=== PATIENT | male | born 1960 | race Two or more races ===

== ENCOUNTER 2017-03-16 16:28 | Inpatient (IN) ==
[2017-03-16 17:15] LABS: Basophils # 0.1 10*3/uL (0.0-0.2); Basophils % 0.5 % (0.0-0.8); Eosinophils # 0.1 10*3/uL (0.0-0.87); Eosinophils % 1.3 % (0.00-10.9); Hematocrit 48.3 VOL% (42.0-52.0); Hemoglobin 16.6 GM/DL (14.0-18.0); Immature Granulocytes % 0.5 %; Immature Granulocytes Absolute 0.05 #; Lymphocytes % 10.5 % (21.2-54.2); Mean Corpuscular HGB Conc 34.4 GM/DL (32-36); Mean Corpuscular Hemoglobin 28 PG (27-34); Mean Corpuscular Volume 82.4 FL (87-102); Mean Platelet Volume 11.5 FL (9.6-12.0); Monocytes # 0.5 10*3/uL (0.11-0.8); Monocytes % 4.9 % (1.7-12.7); Neutrophils # 7.7 10*3/uL (1.4-7.4); Neutrophils % 82.3 % (38.7-73.9); Platelet Count 210 T/CUMM (130-400); Red Blood Count 5.86 MC/CUMM (3.8-5.5); Red Cell Distribution Width 13.4 % (9.3-17.3); White Blood Count 9.3 T/CUMM (4-12)
[2017-03-16 17:28] LABS: PT Patient Result 10.8 SECS; Partial Thromboplastin Time 31.2 SECS (0-40)
[2017-03-16 17:29] LABS: Alanine Aminotransferase 46 U/L (16-61); Albumin 3.2 G/DL (3.4-5.0); Alkaline Phosphatase 70 U/L (45-117); Aspartate Amino Transferase 33 U/L (0-37); Blood Urea Nitrogen 18 MG/DL (7-18); Glucose 170 MG/DL (74-106); Osmolality,Calculated 275.1 MOS/KG (273-304); Potassium 4.1 MMOL/L (3.5-5.1); Sodium 135 MMOL/L (136-145); Total Protein 7.1 G/DL (6.4-8.3)
[2017-03-16] MEDS ORDERED: DIAZEPAM 10 MG/2 ML SYRINGE ONE (17:35)
[2017-03-16] MEDS ORDERED: DIAZEPAM 10 MG/2 ML SYRINGE IV STA (17:40)
[2017-03-16] MEDS ORDERED: CARVEDILOL 3.125 MG TABLET PO STA (17:40)
[2017-03-16] MEDS ORDERED: MAGNESIUM SULF RIDER 2 GM in PREMIX 1 EACH IV STA (17:40)
[2017-03-16] MEDS ORDERED: MAGNESIUM SULF RIDER 50 ML IV ONE (17:45)
[2017-03-16] MEDS ORDERED: ONDANSETRON 4 MG/2 ML VIAL IV PRN (17:57)
[2017-03-16] MEDS ORDERED: MAGNESIUM SULF RIDER 4 GM in PREMIX 1 EACH IV PRN (17:57)
[2017-03-16] MEDS ORDERED: MAGNESIUM SULF RIDER 2 GM in PREMIX 1 EACH IV PRN (17:57)
[2017-03-16] MEDS ORDERED: ZALEPLON 5 MG CAPSULE PO PRN (17:57)
[2017-03-16] MEDS: CARVEDILOL 12.5 MG TABLET PO SCH (20:21)
[2017-03-16 21:23] LABS: CKMB % 4.6 %
[2017-03-16 21:27] LABS: Troponin I Only 3.34 NG/ML (0.00-0.045)
[2017-03-17 00:50] LABS: CKMB % 2.8 %
[2017-03-17 01:14] LABS: Troponin I Only 5.2 NG/ML (0.00-0.045)
[2017-03-17] MEDS ORDERED: AMIODARONE INJ 450 MG in DEXTROSE 5% 241 ML IV SCH (09:30)
[2017-03-17] MEDS: ASPIRIN EC 81 MG TABLET PO SCH (10:11)
[2017-03-17] MEDS: PANTOPRAZOLE 40 MG TABLET PO SCH (10:11)
[2017-03-17] MEDS: CARVEDILOL 12.5 MG TABLET PO SCH ×2 (10:11→20:38)
[2017-03-17] MEDS: ENALAPRIL 5 MG TABLET PO SCH (10:11)
[2017-03-17] MEDS: EPLERENONE 25 MG TABLET PO SCH (10:11)
[2017-03-17] MEDS: PRAVASTATIN 20 MG TABLET PO SCH ×2 (10:12→20:38)
[2017-03-17] MEDS: RIVAROXABAN 15 MG TABLET PO SCH (10:12)
[2017-03-17] MEDS: FUROSEMIDE 40 MG/4 ML VIAL IV SCH (16:13)
[2017-03-17] MEDS: AMIODARONE INJ 450 MG in DEXTROSE 5% 241 ML IV SCH (18:53)
[2017-03-18 05:32] LABS: Basophils % 0.4 % (0.0-0.8); Eosinophils # 0.2 10*3/uL (0.0-0.87); Eosinophils % 1.8 % (0.00-10.9); Hematocrit 44.7 VOL% (42.0-52.0); Hemoglobin 15.1 GM/DL (14.0-18.0); Immature Granulocytes % 0.6 %; Immature Granulocytes Absolute 0.05 #; Lymphocytes % 12.2 % (21.2-54.2); Mean Corpuscular HGB Conc 33.8 GM/DL (32-36); Mean Corpuscular Hemoglobin 28 PG (27-34); Mean Corpuscular Volume 82.2 FL (87-102); Mean Platelet Volume 11.7 FL (9.6-12.0); Monocytes # 0.6 10*3/uL (0.11-0.8); Monocytes % 6.8 % (1.7-12.7); Neutrophils # 6.5 10*3/uL (1.4-7.4); Neutrophils % 78.2 % (38.7-73.9); Platelet Count 164 T/CUMM (130-400); Red Blood Count 5.44 MC/CUMM (3.8-5.5); Red Cell Distribution Width 13.6 % (9.3-17.3); White Blood Count 8.3 T/CUMM (4-12)
[2017-03-18 05:52] LABS: Calcium 8.6 MG/DL (8.5-10.1); Magnesium 1.7 MG/DL (1.8-2.4); Osmolality,Calculated 272.8 MOS/KG (273-304); Potassium 3.6 MMOL/L (3.5-5.1)
[2017-03-18] MEDS ORDERED: DIGOXIN 0.25 MG TABLET PO SCH (09:00)
[2017-03-18] MEDS: DIGOXIN 0.125 MG TABLET PO SCH (09:29)
[2017-03-18] MEDS: FUROSEMIDE 40 MG/4 ML VIAL IV SCH ×2 (09:29→15:08)
[2017-03-18] MEDS: ASPIRIN EC 81 MG TABLET PO SCH (09:30)
[2017-03-18] MEDS: COENZYME Q10 100 MG CAPSULE PO SCH (09:30)
[2017-03-18] MEDS: ENALAPRIL 5 MG TABLET PO SCH (09:30)
[2017-03-18] MEDS: PRAVASTATIN 20 MG TABLET PO SCH ×2 (09:30→20:47)
[2017-03-18] MEDS: PANTOPRAZOLE 40 MG TABLET PO SCH (09:30)
[2017-03-18] MEDS: CARVEDILOL 12.5 MG TABLET PO SCH ×2 (09:30→20:47)
[2017-03-18] MEDS: RIVAROXABAN 15 MG TABLET PO SCH (09:30)
[2017-03-18] MEDS: EPLERENONE 25 MG TABLET PO SCH (09:35)
[2017-03-18] MEDS: AMIODARONE INJ 450 MG in DEXTROSE 5% 241 ML IV SCH (10:32)
[2017-03-18] MEDS: MAGNESIUM OXIDE 400 MG TABLET PO SCH ×2 (13:15→20:47)
[2017-03-18] MEDS ORDERED: AMIODARONE 200 MG TABLET PO SCH (14:30)
[2017-03-19 05:19] LABS: Basophils % 0.4 % (0.0-0.8); Eosinophils # 0.1 10*3/uL (0.0-0.87); Eosinophils % 1.4 % (0.00-10.9); Hematocrit 46.3 VOL% (42.0-52.0); Hemoglobin 15.6 GM/DL (14.0-18.0); Immature Granulocytes % 0.5 %; Immature Granulocytes Absolute 0.04 #; Lymphocytes # 1.1 10*3/uL (1.4-4.0); Lymphocytes % 13.6 % (21.2-54.2); Mean Corpuscular HGB Conc 33.7 GM/DL (32-36); Mean Corpuscular Hemoglobin 28 PG (27-34); Mean Corpuscular Volume 82.4 FL (87-102); Mean Platelet Volume 10.7 FL (9.6-12.0); Monocytes # 0.6 10*3/uL (0.11-0.8); Monocytes % 7.7 % (1.7-12.7); Neutrophils # 6.2 10*3/uL (1.4-7.4); Neutrophils % 76.4 % (38.7-73.9); Platelet Count 166 T/CUMM (130-400); Red Blood Count 5.62 MC/CUMM (3.8-5.5); Red Cell Distribution Width 13.5 % (9.3-17.3)
[2017-03-19 05:59] LABS: Calcium 8.7 MG/DL (8.5-10.1); Magnesium 2.1 MG/DL (1.8-2.4); Osmolality,Calculated 273.8 MOS/KG (273-304); Potassium 3.6 MMOL/L (3.5-5.1)
[2017-03-19] MEDS ORDERED: ENOXAPARIN 80 MG/0.8 ML SYRINGE SUBCUT SCH (09:00)
[2017-03-19] MEDS: FUROSEMIDE 40 MG/4 ML VIAL IV SCH ×2 (09:30→16:48)
[2017-03-19] MEDS: DIGOXIN 0.125 MG TABLET PO SCH (09:40)
[2017-03-19] MEDS: EPLERENONE 25 MG TABLET PO SCH (09:40)
[2017-03-19] MEDS: COENZYME Q10 100 MG CAPSULE PO SCH (09:42)
[2017-03-19] MEDS: PANTOPRAZOLE 40 MG TABLET PO SCH (09:43)
[2017-03-19] MEDS: AMIODARONE 200 MG TABLET PO SCH ×2 (09:43→21:40)
[2017-03-19] MEDS: ENALAPRIL 5 MG TABLET PO SCH (09:43)
[2017-03-19] MEDS: MAGNESIUM OXIDE 400 MG TABLET PO SCH ×2 (09:43→21:40)
[2017-03-19] MEDS: ASPIRIN EC 81 MG TABLET PO SCH (09:44)
[2017-03-19] MEDS: CARVEDILOL 12.5 MG TABLET PO SCH ×2 (09:44→21:40)
[2017-03-19] MEDS ORDERED: DOCUSATE SODIUM 100 MG CAPSULE PO PRN (11:45)
[2017-03-19] MEDS ORDERED: guaiFENesin/DM ER 600-30 MG TABLET PO PRN (11:45)
[2017-03-19] MEDS ORDERED: ACETAMINOPHEN 325 MG TABLET PO PRN (11:45)
[2017-03-19] MEDS ORDERED: diphenhydrAMINE CAP 25 MG CAPSULE PO PRN (11:45)
[2017-03-19] MEDS ORDERED: POTASSIUM CHLORIDE RIDER 10 MEQ in PREMIX 1 EACH IV PRN (19:57)
[2017-03-19] MEDS ORDERED: MAGNESIUM SULF RIDER 2 GM in PREMIX 1 EACH IV PRN (19:57)
[2017-03-19] MEDS ORDERED: SODIUM CHLORIDE 0.9% 1,000 ML IV SCH (20:00)
[2017-03-19] MEDS: PRAVASTATIN 20 MG TABLET PO SCH (21:40)
[2017-03-20 05:24] LABS: Basophils % 0.4 % (0.0-0.8); Eosinophils # 0.1 10*3/uL (0.0-0.87); Eosinophils % 1.6 % (0.00-10.9); Hematocrit 47.9 VOL% (42.0-52.0); Hemoglobin 16.5 GM/DL (14.0-18.0); Immature Granulocytes % 0.5 %; Immature Granulocytes Absolute 0.04 #; Lymphocytes % 12.9 % (21.2-54.2); Mean Corpuscular HGB Conc 34.4 GM/DL (32-36); Mean Corpuscular Hemoglobin 28 PG (27-34); Mean Corpuscular Volume 82.3 FL (87-102); Mean Platelet Volume 11.4 FL (9.6-12.0); Monocytes # 0.7 10*3/uL (0.11-0.8); Monocytes % 8.4 % (1.7-12.7); Neutrophils # 6.1 10*3/uL (1.4-7.4); Neutrophils % 76.2 % (38.7-73.9); Platelet Count 161 T/CUMM (130-400); Red Blood Count 5.82 MC/CUMM (3.8-5.5); Red Cell Distribution Width 13.6 % (9.3-17.3)
[2017-03-20 05:49] LABS: Calcium 8.6 MG/DL (8.5-10.1); Osmolality,Calculated 272.1 MOS/KG (273-304); Potassium 3.9 MMOL/L (3.5-5.1)
[2017-03-20 05:55] LABS: Calcium 8.6 MG/DL (8.5-10.1); Magnesium 2.1 MG/DL (1.8-2.4); Potassium 3.8 MMOL/L (3.5-5.1)
[2017-03-20 06:28] LABS: Hypochromasia 1+; Target Cells Slight
[2017-03-20] MEDS ORDERED: DIAZEPAM 5 MG TABLET ONE (08:21)
[2017-03-20] MEDS ORDERED: diphenhydrAMINE CAP 50 MG CAPSULE ONE (08:21)
[2017-03-20] MEDS: MAGNESIUM OXIDE 400 MG TABLET PO SCH ×2 (08:29→21:45)
[2017-03-20] MEDS: CARVEDILOL 12.5 MG TABLET PO SCH ×2 (08:29→21:45)
[2017-03-20] MEDS: ASPIRIN EC 81 MG TABLET PO SCH (08:29)
[2017-03-20] MEDS ORDERED: diphenhydrAMINE CAP 50 MG CAPSULE PO ONE (08:30)
[2017-03-20] MEDS: PANTOPRAZOLE 40 MG TABLET PO SCH (08:30)
[2017-03-20] MEDS: EPLERENONE 25 MG TABLET PO SCH (08:30)
[2017-03-20] MEDS ORDERED: DIAZEPAM 5 MG TABLET PO ONE (08:30)
[2017-03-20] MEDS: AMIODARONE 200 MG TABLET PO SCH ×2 (08:30→21:45)
[2017-03-20] MEDS: ENALAPRIL 5 MG TABLET PO SCH (08:30)
[2017-03-20] MEDS: DIGOXIN 0.125 MG TABLET PO SCH (08:30)
[2017-03-20] MEDS ORDERED: LIDOCAINE 1% 20 ML VIAL ONE (08:58)
[2017-03-20] MEDS ORDERED: MIDAZOLAM 2 MG/2 ML VIAL ONE (08:59)
[2017-03-20] MEDS ORDERED: MEPERIDINE 25 MG/1 ML VIAL ONE (08:59)
[2017-03-20] MEDS ORDERED: methylPREDNISolone SOD SUC 125 MG/2 ML VIAL ONE (09:12)
[2017-03-20] MEDS ORDERED: RIVAROXABAN 20 MG TABLET PO SCH (10:29)
[2017-03-20] MEDS ORDERED: ACETAMINOPHEN/CODEINE 300-30 MG TABLET PO PRN (10:35)
[2017-03-20] MEDS ORDERED: MORPHINE 2 MG/1 ML SYRINGE IV PRN (10:35)
[2017-03-20] MEDS: COENZYME Q10 100 MG CAPSULE PO SCH (11:18)
[2017-03-20] MEDS: FUROSEMIDE 40 MG/4 ML VIAL IV SCH (11:19)
[2017-03-20] MEDS: FUROSEMIDE 40 MG TABLET PO SCH (17:32)
[2017-03-20] MEDS: PRAVASTATIN 20 MG TABLET PO SCH (21:45)
[2017-03-21 03:52] LABS: Basophils % 0.2 % (0.0-0.8); Hematocrit 45.5 VOL% (42.0-52.0); Hemoglobin 15.9 GM/DL (14.0-18.0); Immature Granulocytes % 0.5 %; Immature Granulocytes Absolute 0.06 #; Lymphocytes # 0.6 10*3/uL (1.4-4.0); Lymphocytes % 4.6 % (21.2-54.2); Mean Corpuscular HGB Conc 34.9 GM/DL (32-36); Mean Corpuscular Hemoglobin 28 PG (27-34); Mean Corpuscular Volume 81.4 FL (87-102); Mean Platelet Volume 11.9 FL (9.6-12.0); Monocytes # 0.2 10*3/uL (0.11-0.8); Monocytes % 1.4 % (1.7-12.7); Neutrophils # 12.5 10*3/uL (1.4-7.4); Neutrophils % 93.3 % (38.7-73.9); Platelet Count 171 T/CUMM (130-400); Red Blood Count 5.59 MC/CUMM (3.8-5.5); Red Cell Distribution Width 13.3 % (9.3-17.3); White Blood Count 13.3 T/CUMM (4-12)
[2017-03-21 03:59] LABS: Magnesium 2.1 MG/DL (1.8-2.4); Osmolality,Calculated 274.1 MOS/KG (273-304); Potassium 4.5 MMOL/L (3.5-5.1)
[2017-03-21 04:00] LABS: Calcium 8.5 MG/DL (8.5-10.1); Osmolality,Calculated 275.1 MOS/KG (273-304); Potassium 4.4 MMOL/L (3.5-5.1)
[2017-03-21 05:37] LABS: Hypochromasia 1+; Lymphocytes 6 % (20-55); Microcytosis 1+; Nucleated Red Blood Cells 1 (0-5); Ovalocytes Slight; Platelet Estimate Adequate; Segmented Neutrophils 92 % (50-85); Total Cells Counted 100
[2017-03-21] MEDS: CARVEDILOL 12.5 MG TABLET PO SCH ×2 (09:02→21:11)
[2017-03-21] MEDS: MAGNESIUM OXIDE 400 MG TABLET PO SCH ×2 (09:02→21:10)
[2017-03-21] MEDS: FUROSEMIDE 40 MG TABLET PO SCH ×2 (09:02→15:43)
[2017-03-21] MEDS: ENALAPRIL 5 MG TABLET PO SCH (09:02)
[2017-03-21] MEDS: COENZYME Q10 100 MG CAPSULE PO SCH (09:02)
[2017-03-21] MEDS: PANTOPRAZOLE 40 MG TABLET PO SCH (09:02)
[2017-03-21] MEDS: ASPIRIN EC 81 MG TABLET PO SCH (09:02)
[2017-03-21] MEDS: DIGOXIN 0.125 MG TABLET PO SCH (09:03)
[2017-03-21] MEDS: EPLERENONE 25 MG TABLET PO SCH (09:03)
[2017-03-21] MEDS: AMIODARONE 200 MG TABLET PO SCH ×2 (09:03→21:11)
[2017-03-21] MEDS: PRAVASTATIN 20 MG TABLET PO SCH (21:11)
[2017-03-22 06:01] LABS: Basophils % 0.1 % (0.0-0.8); Eosinophils % 0.1 % (0.00-10.9); Hematocrit 46.5 VOL% (42.0-52.0); Hemoglobin 15.6 GM/DL (14.0-18.0); Immature Granulocytes % 0.5 %; Immature Granulocytes Absolute 0.05 #; Lymphocytes # 0.9 10*3/uL (1.4-4.0); Mean Corpuscular HGB Conc 33.5 GM/DL (32-36); Mean Corpuscular Hemoglobin 28 PG (27-34); Mean Corpuscular Volume 83.9 FL (87-102); Mean Platelet Volume 12.1 FL (9.6-12.0); Monocytes # 0.6 10*3/uL (0.11-0.8); Monocytes % 6.1 % (1.7-12.7); Neutrophils # 8.5 10*3/uL (1.4-7.4); Neutrophils % 84.2 % (38.7-73.9); Platelet Count 147 T/CUMM (130-400); Red Blood Count 5.54 MC/CUMM (3.8-5.5); Red Cell Distribution Width 13.5 % (9.3-17.3); White Blood Count 10.1 T/CUMM (4-12)
[2017-03-22 06:28] LABS: Calcium 8.9 MG/DL (8.5-10.1); Magnesium 2.2 MG/DL (1.8-2.4); Potassium 4.2 MMOL/L (3.5-5.1)
[2017-03-22] MEDS: DIGOXIN 0.125 MG TABLET PO SCH (09:02)
[2017-03-22] MEDS: EPLERENONE 25 MG TABLET PO SCH (09:02)
[2017-03-22] MEDS: ENALAPRIL 5 MG TABLET PO SCH (09:02)
[2017-03-22] MEDS: FUROSEMIDE 40 MG TABLET PO SCH ×2 (09:02→16:40)
[2017-03-22] MEDS: PANTOPRAZOLE 40 MG TABLET PO SCH (09:03)
[2017-03-22] MEDS: COENZYME Q10 100 MG CAPSULE PO SCH (09:03)
[2017-03-22] MEDS: AMIODARONE 200 MG TABLET PO SCH ×2 (09:03→21:48)
[2017-03-22] MEDS: ASPIRIN EC 81 MG TABLET PO SCH (09:03)
[2017-03-22] MEDS: MAGNESIUM OXIDE 400 MG TABLET PO SCH ×2 (09:03→21:48)
[2017-03-22] MEDS: CARVEDILOL 12.5 MG TABLET PO SCH ×2 (09:03→21:48)
[2017-03-22] MEDS: PRAVASTATIN 20 MG TABLET PO SCH (21:48)
[2017-03-23 06:17] LABS: Basophils % 0.4 % (0.0-0.8); Eosinophils # 0.1 10*3/uL (0.0-0.87); Eosinophils % 1.4 % (0.00-10.9); Hematocrit 49.5 VOL% (42.0-52.0); Hemoglobin 16.6 GM/DL (14.0-18.0); Immature Granulocytes % 0.5 %; Immature Granulocytes Absolute 0.04 #; Lymphocytes # 1.1 10*3/uL (1.4-4.0); Lymphocytes % 13.7 % (21.2-54.2); Mean Corpuscular HGB Conc 33.5 GM/DL (32-36); Mean Corpuscular Hemoglobin 28 PG (27-34); Mean Corpuscular Volume 83.9 FL (87-102); Mean Platelet Volume 11.1 FL (9.6-12.0); Monocytes # 0.7 10*3/uL (0.11-0.8); Monocytes % 8.3 % (1.7-12.7); Neutrophils % 75.7 % (38.7-73.9); Platelet Count 159 T/CUMM (130-400); Red Cell Distribution Width 13.5 % (9.3-17.3); White Blood Count 7.9 T/CUMM (4-12)
[2017-03-23 06:54] LABS: Magnesium 2.3 MG/DL (1.8-2.4); Potassium 4.4 MMOL/L (3.5-5.1)
[2017-03-23] MEDS: CARVEDILOL 12.5 MG TABLET PO SCH (09:04)
[2017-03-23] MEDS: COENZYME Q10 100 MG CAPSULE PO SCH (09:04)
[2017-03-23] MEDS: MAGNESIUM OXIDE 400 MG TABLET PO SCH (09:04)
[2017-03-23] MEDS: ASPIRIN EC 81 MG TABLET PO SCH (09:04)
[2017-03-23] MEDS: EPLERENONE 25 MG TABLET PO SCH (09:05)
[2017-03-23] MEDS: AMIODARONE 200 MG TABLET PO SCH (09:05)
[2017-03-23] MEDS: PANTOPRAZOLE 40 MG TABLET PO SCH (09:05)
[2017-03-23] MEDS: ENALAPRIL 5 MG TABLET PO SCH (09:05)
[2017-03-23] MEDS: FUROSEMIDE 40 MG TABLET PO SCH (09:05)
[2017-03-23] MEDS: DIGOXIN 0.125 MG TABLET PO SCH (09:05)
[2017-03-23 12:18] VITALS: BP 128/74
[2017-03-23] MEDS ORDERED: RIVAROXABAN 20 MG TABLET PO SCH (17:00)
[2017-03-24] MEDS ORDERED: FUROSEMIDE 40 MG TABLET PO SCH (09:00)
[2017-03-24] MEDS ORDERED: AMIODARONE 200 MG TABLET PO SCH (09:00)
== END 2017-03-23 14:20 | disposition home or self-care (01) | DRG 286 ==
LOC: N.ED 16:28 → N.EDINP 17:57 → N.TELEN 19:07
PROVIDERS: ADMIT Internal Medicine Cardiovascular Disease; ATTEND Internal Medicine Cardiovascular Disease